=== PATIENT | female | born 1990 | race Caucasian/White ===

== ENCOUNTER 2017-11-24 12:18 | Inpatient (IN) | payer OTHER ==
[~2017-11-24] VITALS: Ht 157.5 cm; Wt 70.3 kg
[2017-11-24] MEDS ORDERED: PREN-380 PO (13:30)
[2017-11-24] MEDS ORDERED: FERR325E14 PO (13:30)
[2017-11-24] MEDS ORDERED: CALC600T16 PO (13:30)
[2017-11-24] MEDS ORDERED: MISOPROSTOL 25 MCG TAB VG ONE (13:35)
[2017-11-24] MEDS ORDERED: OXYTOCIN 10 UNITS/ML VIAL IM SCH (13:35)
[2017-11-24] MEDS ORDERED: CARBOPROST 250 MCG/ML AMP IM PRN (13:35)
[2017-11-24] MEDS ORDERED: AMPICILLIN 2,000 MG in NACL 0.9% MINI-BAG PLUS 100 ML IV SCH (13:35)
[2017-11-24] MEDS ORDERED: METHYLERGONOVINE 0.2 MG/ML AMP IM PRN (13:35)
[2017-11-24 14:14] LABS: BASOPHILS % (AUTO) 0.7 % (0.0-2.0); EOSINOPHILS # (AUTO) 0.1 K/uL (0-0.4); EOSINOPHILS % (AUTO) 0.9 % (0.0-4.0); HEMATOCRIT 30.1 % (36-48); HEMOGLOBIN 9.6 g/dL (12.0-16.0); LYMPHOCYTES # (AUTO) 1.4 K/uL (2.5-16.5); LYMPHOCYTES % (AUTO) 20.6 % (20.5-51.1); MEAN CORPUSCULAR HEMOGLOBIN 22 pg (27-31); MEAN CORPUSCULAR HGB CONC 32 g/dL (33-37); MEAN CORPUSCULAR VOLUME 68 fL (80-94); MONOCYTES # (AUTO) 0.6 K/uL (0.8-1.0); MONOCYTES % (AUTO) 8.4 % (1.7-9.3); NEUTROPHILS # (AUTO) 4.6 K/uL (1.8-7.7); NEUTROPHILS % (AUTO) 69.4 % (42.2-75.2); PLATELET COUNT (AUTO) 159 K/uL (140-450); RED BLOOD CELL COUNT(AUTO) 4.41 MIL/uL (4.20-5.40); RED CELL DISTRIBUTION WIDTH 18.1 % (11.6-13.7); WHITE BLOOD COUNT (AUTO) 6.7 K/uL (4.8-10.8)
[2017-11-24 14:26] LABS: ANION GAP 11.7 (8-16); CARBON DIOXIDE 25.6 mmol/L (21-32); CREATININE 0.6 mg/dL (0.6-1.3); POTASSIUM 3.3 mmol/L (3.5-5.1)
[2017-11-24 14:33] LABS: ALBUMIN 2.8 g/dL (3.4-5.0); TOTAL BILIRUBIN 0.3 mg/dL (0.0-1.0)
[2017-11-24 14:56] LABS: APPEARANCE,URINE SL CLOUDY (CLEAR); BILIRUBIN,URINE NEGATIVE (NEGATIVE); BLOOD, URINE TRACE-I (NEGATIVE); COLOR,URINE YELLOW (YELLOW); LEUKOCYTE ESTERASE ,URINE NEGATIVE (NEGATIVE); NITRITE, URINE NEGATIVE (NEGATIVE); PH,URINE 6.5 (5.0-9.0); UGLUCOSE TRACE (NEGATIVE)
[2017-11-24 15:08] LABS: CALCIUM OXALATE CRYSTALS,UR 0-10 /HPF (None Seen); RBC,URINE 3-10 (FEW) /HPF (0-5); URINE AMORPHOUS URATE 1+ /HPF (None Seen); WBC,URINE NONE SEEN /HPF (0-5)
[2017-11-24] MEDS: LACTATED RINGERS 1,000 ML IV SCH ×2 (15:14→22:15)
[2017-11-24] MEDS ORDERED: AMPICILLIN 1,000 MG VIAL ONE (19:37)
[2017-11-24] MEDS: AMPICILLIN 1,000 MG in NACL 0.9% MINI-BAG PLUS 50 ML IV SCH (19:42)
[2017-11-24] MEDS ORDERED: MISOPROSTOL 25 MCG TAB ONE (20:16)
[2017-11-25] MEDS ORDERED: AMPICILLIN 1,000 MG VIAL ONE ×3 (00:04→07:33)
[2017-11-25] MEDS: AMPICILLIN 1,000 MG in NACL 0.9% MINI-BAG PLUS 50 ML IV SCH ×2 (00:07→04:02)
[2017-11-25] MEDS ORDERED: OXYTOCIN 20 UNITS/LR PREMIX 1,000 ML IV ONE (00:59)
[2017-11-25] MEDS ORDERED: OXYTOCIN 20 UNITS in LACTATED RINGERS 1,000 ML IV SCH ×2 (01:05)
[2017-11-25] MEDS ORDERED: LIDOCAINE 1% 500 MG/50 ML VIAL INJ SCH (02:05)
[2017-11-25] MEDS ORDERED: OXYTOCIN 10 UNITS/ML VIAL ONE (02:16)
[2017-11-25] MEDS ORDERED: LIDOCAINE MPF 1% - **ER/OR** 20 ML ONE (02:16)
[2017-11-25] MEDS ORDERED: PROMETHAZINE 25 MG/ML VIAL ONE ×2 (02:30→05:49)
[2017-11-25] MEDS ORDERED: NALBUPHINE HYDROCHLORIDE 10 MG/ML VIAL ONE ×2 (02:30→05:49)
[2017-11-25] MEDS: PROMETHAZINE 25 MG/ML VIAL IVP PRN ×2 (02:34→05:53)
[2017-11-25] MEDS: NALBUPHINE HYDROCHLORIDE 10 MG/ML VIAL IVP PRN ×2 (02:34→05:53)
[2017-11-25] MEDS: LACTATED RINGERS 1,000 ML IV SCH (07:07)
--- NOTE | 2017-11-25 09:08 | NUR ---
PATIENT HAS BEEN SCREENED AND CATEGORIZED LOW NUTRITION RISK. PATIENT WILL BE SEEN WITHIN 7 DAYS OF ADMISSION. 12/01/[address]
[2017-11-25] MEDS ORDERED: HYDROcodone/APAP 5/325 MG 1 TAB TAB PO PRN (09:15)
[2017-11-25] MEDS ORDERED: METHYLERGONOVINE 0.2 MG/ML AMP IM PRN (09:15)
[2017-11-25] MEDS ORDERED: TEMAZEPAM 15 MG CAP PO PRN (09:15)
[2017-11-25] MEDS ORDERED: IBUPROFEN 800 MG TAB PO PRN (09:15)
[2017-11-25] MEDS ORDERED: oxyCODONE/APAP 5/325 MG 1 TAB TAB PO PRN (09:15)
[2017-11-25] MEDS ORDERED: SODIUM PHOSPHATE 118 ML ENEM RC PRN (09:15)
[2017-11-25] MEDS ORDERED: BENZOCAINE/MENTHOL 20%-0.5% 60 GM CAN TP PRN (09:15)
[2017-11-25] MEDS ORDERED: MEASLES, MUMPS, AND RUBELLA 1 VIAL SQVAC PRN (09:15)
[2017-11-25] MEDS ORDERED: DOCUSATE SOD/SENNA 50/8.6 MG 1 TAB PO SCH (21:00)
[2017-11-26 06:28] LABS: HEMATOCRIT 30.2 % (36-48); HEMOGLOBIN 9.4 g/dL (12.0-16.0)
[2017-11-27] MEDS ORDERED: TERBINAFINE 1% 15 GM TUBE TP SCH (02:20)
== END 2017-11-27 14:40 | disposition home or self-care (01) | DRG 560 ==
LOC: MLD 12:18 → MFCC 11-25 11:15
PROVIDERS: ADMIT Obstetrics & Gynecology; ATTEND Obstetrics & Gynecology
PROC: 10E0XZZ Delivery of Products of Conception, External Approach (ICD-10-PCS; principal; 2017-11-25)
PROC: 10907ZC Drainage of Amniotic Fluid, Therapeutic from Products of Conception, Via Natural or Artificial Opening (ICD-10-PCS; 2017-11-25)
DX: O69.1XX0 Labor and delivery complicated by cord around neck, with compression, not applicable or unspecified (principal); O99.824 Streptococcus B carrier state complicating childbirth; Z3A.39 39 weeks gestation of pregnancy; Z37.0 Single live birth; Z28.21 Immunization not carried out because of patient refusal
CPT/HCPCS: 36415; 59200; 59409; 80053; 81001; 85018; 85025; 86592; 86886; 86900; 86901; J0290; J2001; J2300; J2550; J2590; J7120

== ENCOUNTER 2022-11-09 08:47 | Emergency (ER) | payer OTHER ==
[~2022-11-09] VITALS: Ht 157.5 cm; Wt 65.8 kg
[~2022-11-09 08:47] MED LIST: CALC600T16 PO; FERR325E14 PO; PREN-380 PO
[2022-11-09 08:53] VITALS: BP 139/80
--- NOTE | 2022-11-09 09:42 | NUR ---
32 y/o F BIB self from home c/o anxiety-like symptoms. Patient A&Ox4, ambulatory, states symptom onset of 0730 while in vehicle walking into work. Pt states symptoms started with jitteriness to bilateral hands and progressed to dizziness, unsteady gait, heart racing, and SOB. Patient states last panic attack 1.5-2 years ago. Denies chest pain, numbness/tingling to extremities, headache, blurry vision, nausea, vomiting, fever, sick household members. Denies meds prior to arrival. Bed locked in lowest position, side rails x 1. PMH/Sx/Meds: tubal ligation NKDA
--- NOTE | 2022-11-09 11:05 | NUR ---
Dr. Medeiros evaluating pt at bedside
[2022-11-09 11:25] VITALS: BP 130/85
--- NOTE | 2022-11-09 11:25 | NUR ---
RAD at bedside
[2022-11-09 11:27] LABS: BASOPHILS # (AUTO) 0.1 K/uL (0.00-0.22); BASOPHILS % (AUTO) 0.9 % (0.0-2.0); EOSINOPHILS # (AUTO) 0.1 K/uL (0-0.4); EOSINOPHILS % (AUTO) 0.9 % (0.0-4.0); HEMATOCRIT 34.8 % (36-48); HEMOGLOBIN 10.8 g/dL (12.0-16.0); LYMPHOCYTES # (AUTO) 1.8 K/uL (2.5-16.5); LYMPHOCYTES % (AUTO) 25.1 % (20.5-51.1); MEAN CORPUSCULAR HEMOGLOBIN 19 pg (27-31); MEAN CORPUSCULAR HGB CONC 31 g/dL (33-37); MEAN CORPUSCULAR VOLUME 60.1 fL (80-94); MONOCYTES # (AUTO) 0.4 K/uL (0.8-1.0); MONOCYTES % (AUTO) 5.5 % (1.7-9.3); NEUTROPHILS # (AUTO) 4.8 K/uL (1.8-7.7); NEUTROPHILS % (AUTO) 67.6 % (42.2-75.2); PLATELET COUNT (AUTO) 267 K/uL (140-450); RED CELL DISTRIBUTION WIDTH 19.5 % (11.6-13.7); WHITE BLOOD COUNT (AUTO) 7.1 K/uL (4.8-10.8)
[2022-11-09 11:41] LABS: ALBUMIN 4.8 g/dL (3.4-5.0); ANION GAP 12.1 (8-16); ASPARTATE AMINOTRANSFERASE 19 U/L (15-37); CARBON DIOXIDE 28.5 mmol/L (21-32); CHLORIDE 104 mmol/L (98-107); CREATININE 0.7 mg/dL (0.6-1.3); GFR ARICAN-AMERICAN 126 mL/min (>90); GLUCOSE 100 mg/dL (74-106); POTASSIUM 3.6 mmol/L (3.5-5.1); SODIUM SERUM 141 mmol/L (136-145); TOTAL BILIRUBIN 0.7 mg/dL (0.0-1.0); UREA NITROGEN, BLOOD 10 mg/dL (7-18)
[2022-11-09] MEDS: LORazepam 1 MG TAB PO ONE (12:43)
[2022-11-09] MEDS ORDERED: ATI.5 PO (12:48)
--- NOTE | 2022-11-09 13:05 | NUR ---
Dr. Medeiros reevaluating pt at bedside
--- NOTE | 2022-11-09 13:07 | NUR ---
Patient discharged with v/s stable. Written and verbal after care instructions given and explained for Shortness of Breath, Adult, Panic Attack. Patient alert, oriented and verbalized understanding of instructions. Ambulatory with steady gait. All questions addressed prior to discharge. ID band removed. Patient advised to follow up with PMD. Rx of Lorazepam given. Patient educated on indication of medication including possible reaction and side effects. Opportunity to ask questions provided and answered. Copies of blood work, RAD results given to patient.
== END 2022-11-09 13:07 | disposition home or self-care (01) ==
LOC: MED 08:47
DX: R06.00 Dyspnea, unspecified (principal); R42 Dizziness and giddiness; R20.0 Anesthesia of skin; Z91.018 Allergy to other foods; Z79.899 Other long term (current) drug therapy; Z98.890 Other specified postprocedural states
CPT/HCPCS: 36415; 71045; 80053; 84484; 85025; 85379; 93005; 99285; Q0092

== ENCOUNTER 2023-11-14 18:25 | Emergency (ER) | payer OTHER ==
[~2023-11-14] VITALS: Ht 157.5 cm; Wt 61.2 kg
[~2023-11-14 18:25] MED LIST changes: +ATI.5 PO
[2023-11-14 19:06] VITALS: BP 115/82; PULSE 126; RESP 20; TEMP 103; O2SAT 98
[2023-11-14] MEDS ORDERED: ACETAMINOPHEN EXTRA STRENGTH 500 MG TAB PO ONE (19:15)
[2023-11-14] MEDS ORDERED: IBUPROFEN 600 MG TAB ONE (19:29)
[2023-11-14] MEDS ORDERED: IBUPROFEN 600 MG TAB PO ONE (19:30)
[2023-11-14] MEDS ORDERED: ONDA-188 SL (19:56)
[2023-11-14] MEDS ORDERED: BPM/473S94 PO (19:56)
[2023-11-14] MEDS ORDERED: IBUP-2213 PO (19:56)
[2023-11-14] MEDS ORDERED: ACET-10509 PO (19:56)
[2023-11-14] MEDS ORDERED: ONDANSETRON 4 MG ODT PO ONE (20:00)
[2023-11-14 20:18] LABS: FLU A ANTIGEN negative (NEGATIVE); FLU B ANTIGEN NEGATIVE (NEGATIVE)
[2023-11-14 20:32] VITALS: TEMP 101
== END 2023-11-14 20:32 | disposition home or self-care (01) ==
LOC: MED 18:25
DX: J06.9 Acute upper respiratory infection, unspecified (principal); Z20.822 Contact with and (suspected) exposure to COVID-19; Z79.899 Other long term (current) drug therapy; Z79.1 Long term (current) use of non-steroidal anti-inflammatories (NSAID); Z91.018 Allergy to other foods
CPT/HCPCS: 81025; 87426; 87804; 99284; Q0162